=== PATIENT | male | born 1965 | race Hispanic/Latino ===

== ENCOUNTER 2018-10-31 23:45 | Emergency (ER) | payer OTHER ==
[~2018-10-31] VITALS: Ht 172.7 cm; Wt 84.5 kg
[2018-11-01] MEDS ORDERED: LISI-542 PO (00:03)
[2018-11-01 01:00] VITALS: BP 136/82
[2018-11-01] MEDS ORDERED: METHOCARBAMOL 500 MG TAB PO ONE (01:00)
== END 2018-11-01 01:39 | disposition home or self-care (01) ==
LOC: M ED 23:45
DX: S16.1XXA Strain of muscle, fascia and tendon at neck level, initial encounter (principal); X58.XXXA Exposure to other specified factors, initial encounter; Y92.89 Other specified places as the place of occurrence of the external cause; I10 Essential (primary) hypertension; Z79.899 Other long term (current) drug therapy